=== PATIENT | female | born 1950 | race Caucasian/White ===

== ENCOUNTER 2019-08-07 13:34 | Emergency (ER) | payer MEDICARE ==
[~2019-08-07] VITALS: Ht 162.6 cm; Wt 93.0 kg
[~2019-08-07 13:34] MED LIST: ASPIR 8181 MG PO; CALCIUM 500 +1 EAC5 PO; LISINOPRIL5 MG PO; METFORMIN HCL500 MG PO; ZOLOFT50 MG PO
[2019-08-07] MEDS ORDERED: HYDROCODON-ACE1 EAC7 PO (15:59)
[2019-08-07] MEDS ORDERED: DIAZEPAM 5 MG5 MG PO (15:59)
[2019-08-07] MEDS ORDERED: KEFLEX500 M1 PO (15:59)
[2019-08-07 16:38] VITALS: BP 137/78
== END 2019-08-07 16:35 | disposition home or self-care (01) ==
LOC: M.ERS 13:34
DX: S62.397A Other fracture of fifth metacarpal bone, left hand, initial encounter for closed fracture (principal); S01.511A Laceration without foreign body of lip, initial encounter; S20.212A Contusion of left front wall of thorax, initial encounter; S50.11XA Contusion of right forearm, initial encounter; I10 Essential (primary) hypertension; E78.5 Hyperlipidemia, unspecified; F32.9 Major depressive disorder, single episode, unspecified; Z90.710 Acquired absence of both cervix and uterus; Z98.51 Tubal ligation status; Z88.8 Allergy status to other drugs, medicaments and biological substances; W10.8XXA Fall (on) (from) other stairs and steps, initial encounter; Y93.89 Activity, other specified; Y92.89 Other specified places as the place of occurrence of the external cause; Y99.8 Other external cause status